=== PATIENT | female | born 1960 | race Caucasian/White ===

== ENCOUNTER 2020-12-17 08:37 | Inpatient (IN) ==
[2020-12-17] MEDS ORDERED: Clindamycin 900 MG/50 ML 900 MG/50 ML IV.SOLN IVPB ONE (09:05)
[2020-12-17] MEDS ORDERED: Ringers Solution, Lactated 1,000 ML IVC SCH (09:15)
[2020-12-17] MEDS ORDERED: *HR* Midazolam HCl 2 MG/2 ML VIAL ONE (09:15)
[2020-12-17] MEDS ORDERED: *HR* FentaNYL (PF) 100 MCG/2 ML VIAL ONE ×2 (09:15→12:01)
[2020-12-17] MEDS ORDERED: *HR* Propofol 200 MG/20 ML VIAL IVP ONE (09:16)
[2020-12-17] MEDS ORDERED: Lidocaine HCL 4 ML Topical Solution (Laryng-O-Jet Kit Sterile Pak) TP ONE (09:20)
[2020-12-17] MEDS ORDERED: Lidocaine -MPF 2% 2 ML VIAL ONE (09:20)
[2020-12-17] MEDS ORDERED: Ondansetron 4 MG/2 ML VIAL ONE (09:20)
[2020-12-17] MEDS ORDERED: *HR* Succinylcholine 200 MG/10 ML VIAL IVP ONE (09:20)
[2020-12-17] MEDS ORDERED: *HR* Rocuronium Bromide 50 MG/5 ML VIAL ONE (09:20)
[2020-12-17] MEDS ORDERED: Acetaminophen IV 1,000 MG/100 ML BAG IVPB ONE (10:26)
[2020-12-17] MEDS ORDERED: Gabapentin 300 MG CAPSULE PO SCH (10:27)
[2020-12-17] MEDS ORDERED: Famotidine 20 MG/2 ML VIAL IVP ONE (10:28)
[2020-12-17] MEDS ORDERED: Albumin Human 5% 12.5 GM/250 ML IV.SOLN ONE (10:31)
[2020-12-17] MEDS ORDERED: Ketorolac 30 MG/ML VIAL ONE (11:58)
[2020-12-17] MEDS ORDERED: Metoclopramide 10 MG/2 ML VIAL IVP PRN (12:20)
[2020-12-17] MEDS ORDERED: *HR* OxyCODONE Immed Rel 5 MG TABLET PO PRN (12:20)
[2020-12-17] MEDS ORDERED: Ketorolac 15 MG/ML VIAL IVP PRN (12:20)
[2020-12-17] MEDS ORDERED: Promethazine 6.25 MG in Water for inj. (sterile) 20 ML IVPB PRN (12:20)
[2020-12-17] MEDS: *HR* FentaNYL (PF) 100 MCG/2 ML VIAL IVP PRN ×4 (12:29→13:57)
[2020-12-17] MEDS ORDERED: Ondansetron 4 MG/2 ML VIAL IVP PRN (16:40)
[2020-12-17] MEDS ORDERED: Naloxone 0.4 MG/ML INJ IVP PRN (16:40)
[2020-12-17] MEDS ORDERED: tiZANidine 4 MG TABLET PO PRN (16:40)
[2020-12-17] MEDS: *HR* Heparin 5,000 UNIT/ML VIAL SQ SCH ×2 (17:10→21:36)
[2020-12-17] MEDS: 0.9 % Sodium Chloride 1,000 ML IVC SCH (17:10)
[2020-12-17] MEDS: Ketorolac 15 MG/ML VIAL IVP SCH (17:10)
[2020-12-17] MEDS: Gabapentin 300 MG CAPSULE PO SCH ×2 (17:11→19:46)
[2020-12-17] MEDS: Nystatin POWDER 30 GM BOTTLE TP SCH ×2 (17:12→19:40)
[2020-12-17] MEDS: Ipratropium/Albuterol Neb 3 ML IH SCH ×3 (18:57→23:43)
[2020-12-17] MEDS: Famotidine 20 MG TABLET PO SCH (19:45)
[2020-12-17] MEDS: Sennosides/Docusate Sodium TABLET PO SCH (19:47)
[2020-12-17] MEDS: *HR* HYDROcodone/Acet 5/325 mg TABLET PO PRN (19:47)
[2020-12-17] MEDS: allopurinoL 100 MG TABLET PO SCH (19:47)
[2020-12-18] MEDS: *HR* HYDROcodone/Acet 5/325 mg TABLET PO PRN (01:10)
[2020-12-18] MEDS: Ketorolac 15 MG/ML VIAL IVP SCH ×2 (01:12→04:34)
[2020-12-18 01:32] LABS: Hematocrit 40.9 % (35.3-44.9); Hemoglobin 13.3 g/dL (11.5-15.4); Mean Corpuscular HGB Conc 32.5 g/dL (31.6-35.5); Mean Corpuscular Hemoglobin 30.2 pg (28.0-33.3); Mean Corpuscular Volume 92.7 fL (83.0-100.0); Mean Platelet Volume 12.2 fL (9.4-12.4); Platelet Count 173 K/mcL (140-400); Red Blood Count 4.41 M/mcL (3.82-4.97); Red Cell Distribution Width 13.9 % (11.5-14.5); White Blood Count 12.5 K/mcL (4.3-11.1)
[2020-12-18 02:03] LABS: BUN/Creatinine Ratio 14 (6-26); Blood Urea Nitrogen 11 mg/dL (6-20); Calcium 9.2 mg/dL (8.6-10.3); Carbon Dioxide 21 mEq/L (23-29); Chloride 105 mEq/L (98-107); Glucose 227 mg/dL (70-105); Magnesium 1.7 mg/dL (1.6-2.6); Osmolality,Calculated 291 (280-300); Sodium 137 mEq/L (136-145); eGFR For African Americans > 60 (> 60); eGFR For Non-African Americans > 60 (> 60)
[2020-12-18 03:00] VITALS: PULSE 74
[2020-12-18] MEDS: 0.9 % Sodium Chloride 1,000 ML IVC SCH (04:35)
[2020-12-18] MEDS: *HR* Heparin 5,000 UNIT/ML VIAL SQ SCH (04:36)
[2020-12-18] MEDS: Ipratropium/Albuterol Neb 3 ML IH SCH ×3 (04:53→11:00)
[2020-12-18 07:37] VITALS: BP 160/94; TEMP 98.3
[2020-12-18] MEDS: Sennosides/Docusate Sodium TABLET PO SCH (07:54)
[2020-12-18] MEDS: Gabapentin 300 MG CAPSULE PO SCH (07:55)
[2020-12-18] MEDS: allopurinoL 100 MG TABLET PO SCH (07:55)
[2020-12-18] MEDS: Famotidine 20 MG TABLET PO SCH (07:55)
[2020-12-18] MEDS ORDERED: Loratadine 10 MG TABLET PO SCH (09:00)
[2020-12-18] MEDS: Nystatin POWDER 30 GM BOTTLE TP SCH (10:34)
[2020-12-18 14:11] VITALS: O2SAT 100
[2020-12-18] MEDS ORDERED: Valsartan 80 MG TABLET PO SCH (21:00)
[2020-12-24] MEDS ORDERED: Ergocalciferol (VIT D2) 50,000 UNIT (1.25MG) CAP PO SCH (09:00)
== END 2020-12-18 11:56 | disposition home or self-care (01) | DRG 121 ==
LOC: SAMDAY 08:37 → 2NNU 16:36
PROVIDERS: ADMIT Thoracic Surgery (Cardiothoracic Vascular Surgery); ATTEND Thoracic Surgery (Cardiothoracic Vascular Surgery)